=== PATIENT | male | born 1955 | race Caucasian/White ===

== ENCOUNTER 2021-05-14 19:23 | Emergency (ER) | payer MEDICARE, OTHER ==
[~2021-05-14] VITALS: Ht 170.2 cm; Wt 68.0 kg
--- NOTE | 2021-05-14 20:34 | NUR ---
MD Perla in room doing MSE on patient.
[2021-05-14] MEDS ORDERED: HYDR-4209 PO ×2 (20:44→21:01)
[2021-05-14] MEDS ORDERED: PRED20TA PO ×2 (20:44→21:01)
--- NOTE | 2021-05-14 21:06 | NUR ---
Patient discharged to home in stable condition. Written and verbal after care instructions given. Patient verbalizes understanding of instructions. Stressed follow up or return to ER for worsening s/s.
[2021-05-14 21:07] VITALS: BP 125/84
== END 2021-05-14 21:07 | disposition home or self-care (01) ==
LOC: ER 19:25
DX: S39.012A Strain of muscle, fascia and tendon of lower back, initial encounter (principal); X50.1XXA Overexertion from prolonged static or awkward postures, initial encounter; Y92.89 Other specified places as the place of occurrence of the external cause; Z86.73 Personal history of transient ischemic attack (TIA), and cerebral infarction without residual deficits
CPT/HCPCS: A4663